=== PATIENT | male | born 1995 | race Caucasian/White ===

== ENCOUNTER 2017-07-13 14:42 | Emergency (ER) | payer MEDICAID, OTHER ==
[~2017-07-13] VITALS: Ht 172.7 cm; Wt 81.8 kg
[2017-07-13 14:42] VITALS: BP 127/76
[2017-07-13] MEDS ORDERED: NORCOTAB PO (17:01)
== END 2017-07-13 17:12 | disposition home or self-care (01) ==
LOC: M ED 14:42
DX: K08.89 Other specified disorders of teeth and supporting structures (principal); Z72.0 Tobacco use

== ENCOUNTER 2018-08-17 20:07 | Emergency (ER) | payer OTHER ==
[~2018-08-17] VITALS: Ht 172.7 cm; Wt 81.8 kg
[~2018-08-17 20:07] MED LIST: NORCOTAB PO
[2018-08-17 20:08] VITALS: BP 167/95
== END 2018-08-17 21:31 | disposition home or self-care (01) ==
LOC: M ED 20:07
DX: J03.90 Acute tonsillitis, unspecified (principal); R59.0 Localized enlarged lymph nodes; F17.220 Nicotine dependence, chewing tobacco, uncomplicated

== ENCOUNTER 2020-02-09 12:54 | Emergency (ER) | payer OTHER ==
[~2020-02-09] VITALS: Ht 172.7 cm; Wt 78.1 kg
[~2020-02-09 12:54] MED LIST changes: +HYDR-3715 PO; -NORCOTAB PO
[2020-02-09 14:16] VITALS: BP 121/69
== END 2020-02-09 14:17 | disposition home or self-care (01) ==
LOC: M ED 12:54
DX: J35.8 Other chronic diseases of tonsils and adenoids (principal)